=== PATIENT | female | born 1950 | race Caucasian/White ===

== ENCOUNTER 2022-05-05 00:49 | Day surgery (SDC) | payer BC, SELFPAY ==
[2022-04-21 13:40] VITALS: BMI 48.5
--- NOTE | 2022-05-04 20:35 | PM.HPGS ---
History of Present Illness History of Present Illness Consent: Risks, benefits, and alternatives have been discussed and questions answered. Patient agrees to proceed with procedure. Chief complaint: hx colon polyps Narrative: Christie Shaikh is a 71 year old female here for colon cancer screening. She had 4 polyps removed 3 years ago. Review of Systems Review of Systems: All systems reviewed & are unremarkable except as noted in HPI and below PMFSH Social History Social History Smoking status: Never smoker Substance use type: does not use Living arrangements: with family Spiritual care concerns: No Meds Home Medications and Allergies Home Medications Medication Instructions Recorded Confirmed Type calcium carbonate 600 mg calcium 1,200 mg PO DAILY 04/21/22 05/05/22 History (1,500 mg) tablet (Calcium) lisinopril 20 1 tablet PO BID 04/21/22 05/05/22 History mg-hydrochlorothiazide 12.5 mg tablet metoprolol succinate 25 mg 25 mg PO DAILY 04/21/22 05/05/22 History tablet,extended release 24 hr spironolactone 50 mg tablet 50 mg PO DAILY 04/21/22 05/05/22 History Allergies Allergy/AdvReac Type Severity Reaction Status Date / Time No Known Allergies Allergy Verified 05/05/22 08:10 Exam Resp: Auscultation: clear to auscultation bilaterally Cardio: Rate: regular rate Rhythm: regular rhythm GI: GI Palp: Yes Soft to palpation and No Tenderness to palpation present (GI) Assessment and Plan Assessment and plan (1) Colon cancer screening: Code(s): Z12.11 - Encounter for screening for malignant neoplasm of colon Status: Acute Assessment and Plan: Colonoscopy with possible biopsy or polypectomy or cautery or injection of substances.
[2022-05-05 07:57] VITALS: BP 162/89; PULSE 89; RESP 18; TEMP 36.7; O2SAT 98; BMI 47.9
[2022-05-05] MEDS: LACTATED RINGERS 1,000 ML 150 ML IV CONT (08:19)
--- NOTE | 2022-05-05 08:49 | P.PNAN_ITS ---
Anes - Initial Pre Proc Eval Procedure: Operation Date: 05/05/22 09:00 Proposed Procedures p Screening Colonoscopy - Red French MD Date/Time: 05/05/22 08:49 Surgeon: Red French MD Pre Op Diagnosis: hx colon polyps Patient Data Age: 71 Gender: F Height: 1.68 m Weight: 134.8 kg Last Vital Signs Temp 98.0 F 05/05/22 07:57 Pulse 89 05/05/22 07:57 Resp 18 05/05/22 07:57 BP 162/89 H 05/05/22 07:57 Pulse Ox 98 05/05/22 07:57 O2 Del Method Room Air 05/05/22 07:57 Allergies Allergy/AdvReac Type Severity Reaction Status Date / Time No Known Allergies Allergy Verified 05/05/22 08:10 Home Medications Medication Instructions Recorded Confirmed Type calcium carbonate 600 mg calcium 1,200 mg PO DAILY 04/21/22 05/05/22 History (1,500 mg) tablet (Calcium) lisinopril 20 1 tablet PO BID 04/21/22 05/05/22 History mg-hydrochlorothiazide 12.5 mg tablet metoprolol succinate 25 mg 25 mg PO DAILY 04/21/22 05/05/22 History tablet,extended release 24 hr spironolactone 50 mg tablet 50 mg PO DAILY 04/21/22 05/05/22 History Patient hx anesthesia problems: none Family hx anesthesia problems: none Results Review: All pre-operative results and documents have been reviewed as part of the pre- operative evaluation. [facility] Social History Social History Smoking status: Never smoker Substance use type: does not use Living arrangements: with family Spiritual care concerns: No Anes - Eval Final PreProcedure Day of Procedure 05/05/22 08:49 Patient weight: morbidly obese Heart: regular rate and rhythm Lungs: clear to auscultation Airway: Mallampati scale class III Neurological: alert and oriented Last oral intake: >/= 8 hours ASA classification: III Emergent: no Anesthetic plan: proceed Anesthesia type and monitoring: general GIVS and standard monitoring Results Review: All pre-operative results and documents have been reviewed as part of the pre- operative evaluation. Informed Consent: The patient's anesthetic plan and its attendant risks and benefits were discussed with the patient/family/POA. Questions were solicited and answers provided to the satisfaction of the patient/family/POA.
[2022-05-05 09:31] VITALS: BP 118/67; PULSE 70; RESP 25; O2SAT 94
[2022-05-05 09:41] VITALS: BP 116/67; PULSE 69; RESP 20; O2SAT 100
[2022-05-05 09:51] VITALS: BP 137/67; PULSE 67; RESP 20; O2SAT 100
== END 2022-05-05 09:59 | disposition home or self-care (01) ==
PROVIDERS: PCP Family Medicine; Visit Provider Internal Medicine Gastroenterology
PROC: 0DJD8ZZ Inspection of Lower Intestinal Tract, Via Natural or Artificial Opening Endoscopic (ICD-10-PCS; CPT 45378; principal; 2022-05-05 09:00)
DX: Z12.11 Encounter for screening for malignant neoplasm of colon (principal); D12.0 Benign neoplasm of cecum; K57.30 Diverticulosis of large intestine without perforation or abscess without bleeding
CPT/HCPCS: 45385; 45381; 88305; J2704; J7120